=== PATIENT | male | born 2005 | race Caucasian/White ===

== ENCOUNTER 2024-05-06 08:20 | Day surgery (SDC) | payer OTHER ==
[~2024-05-06] VITALS: Ht 180.3 cm; Wt 73.0 kg
[2024-05-06 09:05] LABS: BASOPHILS % (AUTO) 0.5 % (0.0-2.0); EOSINOPHILS # (AUTO) 0.2 K/uL (0.0-0.4); EOSINOPHILS % (AUTO) 3.1 % (0.0-4.0); HEMATOCRIT 45.7 % (36-54); HEMOGLOBIN 15.5 g/dL (14.0-18.0); LYMPHOCYTES # (AUTO) 2.2 K/uL (1.0-5.5); LYMPHOCYTES % (AUTO) 42.5 % (20.5-51.5); MEAN CORPUSCULAR HEMOGLOBIN 29 pg (27-31); MEAN CORPUSCULAR HGB CONC 34 % (32-36); MEAN CORPUSCULAR VOLUME 86 fL (79.0-98.0); MONOCYTES # (AUTO) 0.5 K/uL (0.0-1.0); MONOCYTES % (AUTO) 9.4 % (1.7-9.3); NEUTROPHILS # (AUTO) 2.3 K/uL (1.8-7.7); NEUTROPHILS % (AUTO) 44.5 % (40.0-70.0); PLATELET COUNT (AUTO) 253 K/uL (130-430); RED BLOOD CELL COUNT(AUTO) 5.34 MIL/uL (4.2-6.2); RED CELL DISTRIBUTION WIDTH 12.6 % (9.0-15.0); WHITE BLOOD COUNT (AUTO) 5.1 K/uL (4.5-11.0)
[2024-05-06 09:23] LABS: ALBUMIN 4.5 g/dL (3.4-4.8); CALCIUM 9.1 mg/dL (8.4-11.0); CREATININE 0.98 mg/dL (0.55-1.30); POTASSIUM 3.7 mmol/L (3.5-5.1); TOTAL BILIRUBIN 0.4 mg/dL (0.0-1.0); TOTAL PROTEIN, SERUM 7.6 g/dL (6.4-8.3)
[2024-05-06 09:34] VITALS: O2SAT 99
[2024-05-06] MEDS ORDERED: OXYMETAZOLINE HCL 0.05% NASAL SPRAY NS ONE (10:30)
[2024-05-06] MEDS ORDERED: MEPERIDINE HCL/PF 25 MG/ML DISP.SYRIN IVP PRN (11:15)
[2024-05-06] MEDS ORDERED: LABETALOL 100 MG/ 20ML VIAL IVP PRN (11:15)
[2024-05-06] MEDS ORDERED: HYDROmorphone 1 MG/ML INJ. CARTRIDGE IVP PRN ×2 (11:15)
[2024-05-06] MEDS ORDERED: LR 1,000 ML IV SCH (11:15)
[2024-05-06] MEDS ORDERED: MIDAZOLAM HCL 2 MG/2 ML VIAL (VERSED) IVP PRN (11:15)
[2024-05-06] MEDS ORDERED: METOCLOPRAMIDE HCL 10 MG/2 ML VIAL IVP PRN (11:15)
[2024-05-06] MEDS ORDERED: ACETAMINOPHEN I.V. 1000 MG 100 ML IV ONE (11:20)
[2024-05-06 14:24] VITALS: BP_SYST 111; PULSE 64; RESP 18; TEMP 97.8
== END 2024-05-06 15:12 | disposition home or self-care (01) ==
LOC: SDS 08:20 → SMU 08:21 → SDS 15:12
PROVIDERS: ATTEND Otolaryngology
DX: D38.5 Neoplasm of uncertain behavior of other respiratory organs (principal); J34.89 Other specified disorders of nose and nasal sinuses; J30.1 Allergic rhinitis due to pollen; Z98.890 Other specified postprocedural states
CPT/HCPCS: 31298; 30520; 30140; 31255; 31256; 80053; 85025; 87070; 87075; 36415; 88304; 88305; 88311; J3490; J1100; J3465; J2405; J2704; J3010; J7120; C1726; J0131